=== PATIENT | female | born 1970 | race Caucasian/White ===

== ENCOUNTER 2018-04-02 20:46 | Emergency (ER) | payer SELFPAY ==
[~2018-04-02] VITALS: Ht 170.2 cm; Wt 68.0 kg
[2018-04-02] MEDS ORDERED: SODIUM CHLORIDE 0.9% 1,000 ML IV ONE (21:46)
[2018-04-02] MEDS ORDERED: ONDANSETRON 4MG ODT PO STA (21:46)
[2018-04-02 22:05] LABS: BASOPHILS % 0.7 % (0.0-2.0); EOSINOPHILS % 1.2 % (0.0-5.0); HEMATOCRIT. 43.5 % (36.0-48.0); HEMOGLOBIN. 14.6 g/dL (12.0-16.0); LYMPHOCYTES % 38.3 % (20.0-50.0); MEAN CORPUSCULAR HEMOGLOBIN 30.9 pg (28.0-32.0); MEAN CORPUSCULAR VOLUME 92.1 fL (81.0-99.0); MEAN PLATELET VOLUME 8.7 fl (7.4-10.4); NEUTROPHILS % 48.8 % (40.0-76.0); PLATELET 257 x1000/uL (130-400); RED BLOOD CELL COUNT 4.73 mill/uL (4.2-5.4); RED CELL DISTRIBUTION WIDTH 15.6 % (11.6-14.6)
[2018-04-02 22:06] LABS: CHLORIDE 107 mEq/L (98-107)
[2018-04-02 22:29] LABS: ETHANOL BLOOD 301 mg/dL
[2018-04-02 23:50] LABS: *AMPHETAMINES SCREEN URINE NEGATIVE (NEGATIVE); *BARBITURATES SCREEN URINE NEGATIVE (NEGATIVE); *BENZODIAZEPINES SCREEN URINE NEGATIVE (NEGATIVE); *COCAINE SCREEN URINE NEGATIVE (NEGATIVE); METHADONE URINE SCREEN NEGATIVE (NEGATIVE)
[2018-04-02 23:51] LABS: CANNABINOID URINE SCREEN NEGATIVE (NEGATIVE); OPIATES URINE SCREEN NEGATIVE (NEGATIVE); PHENCYCLIDINE URINE SCREEN NEGATIVE (NEGATIVE)
[2018-04-03 04:08] VITALS: BP 120/75
== END 2018-04-03 04:14 | disposition home or self-care (01) ==
LOC: ER 20:46
DX: G93.40 Encephalopathy, unspecified (principal); F10.10 Alcohol abuse, uncomplicated; Y90.8 Blood alcohol level of 240 mg/100 ml or more
CPT/HCPCS: 36415; 70450; 80053; 80305; 81025; 85025; 96360; 96361; 99284; G0482; J7030; Q0162